=== PATIENT | female | born 1990 | race African-American/Black ===

== ENCOUNTER 2022-04-10 07:31 | Emergency (ER) | payer OTHER ==
[~2022-04-10] VITALS: Ht 167.6 cm; Wt 76.0 kg
[2022-04-10 07:35] VITALS: BP 131/71
[2022-04-10] MEDS ORDERED: CETI-450 PO (07:40)
[2022-04-10] MEDS ORDERED: ONDANSETRON HCL 4 MG TABLET PO ONE (09:15)
[2022-04-10] MEDS ORDERED: ONDA-104 PO (09:20)
== END 2022-04-10 10:01 | disposition home or self-care (01) ==
LOC: EMS 07:35
DX: S00.83XA Contusion of other part of head, initial encounter (principal); W22.8XXA Striking against or struck by other objects, initial encounter; G43.909 Migraine, unspecified, not intractable, without status migrainosus; F41.9 Anxiety disorder, unspecified; Y93.01 Activity, walking, marching and hiking; Y92.89 Other specified places as the place of occurrence of the external cause; Y99.8 Other external cause status
CPT/HCPCS: 99283; Q0162